=== PATIENT | male | born 1970 | race Caucasian/White ===

== ENCOUNTER 2024-05-09 01:37 | Emergency (ER) | payer BC, SELFPAY ==
[2024-05-09 01:39] VITALS: BP 142/77; PULSE 56; RESP 16; TEMP 36.6; O2SAT 100
--- OUTSIDE RECORDS SUMMARY | 2024-05-09 01:40 | XMS_ITS | Clinical Summary ---
Author Organization [facility] [address] [place] Address [address] [place] [id number] Care Team Providers Care Lead Cashier Name Role Phone Unknown, Notinfile Primary Care Provider Unavail able Allergies No known active allergies Medications No known medications Active Problems No known active problems Social History Tobacco Use Types Packs/Day Years Used Date Smoking Tobacco: Never Smokeless Tobacco: Current Chew Tobacco Cessation:Ready to Q uit: Not Asked; Counseling Given: Not Answered Personal Safety Answer Date Recorded Getting School Help Needed Not on file 06/23 Sex and Gender Information Value Date Recorded Sex Assigned at Not on file Legal Sex Male 2:13 PM CDT Gender Identity Not on file Sexual Orientation Not on file Obstetrics History Last Filed Vital Signs Vital Sign Reading Time Taken Comments Blood Pressure 131/91 12/07/2021 2:27 PM CDT Pulse 77 12/07/2021 2:27 PM CDT Temperature 37.1 ??C (98.8 ??F) 12/07/2021 2:27 PM CD T Respiratory Rate 16 12/07/2021 2:27 PM CDT Oxygen Saturation 96% 12/07/2021 2:27 PM CDT Inhaled Oxygen Concentration - - Weight 104.3 kg (230 lb) 12/07/2021 2:27 PM CDT Height 189.4 cm (6' 2.57 ) 12/07/2021 2:27 PM CD T Body Mass Index 29.08 12/07/2021 2:27 PM CDT Plan of Treatment Health Maintenance Due Date Last Done Comments Colon Cancer Screening-Colonoscopy 1971 Depression Screening 1971 Hepatitis C Screening 1971 Prostate Cancer Screening-PSA 1971 Hepatitis B Screening 11/15/1989 Regular Well Visit/Exam 18-64 11/15/1989 Zoster Vaccine (1 of 2) 11/15/2021 Influenza Vaccine (#1) 2023 DTaP/Tdap/Td Vaccine (2 - Td or Tdap) 11/21/2024 11/21/2014 Pneumococcal vaccine <65 Aged Out No longer eligible based on patient's age to complete this topic Insurance [facility] Care Teams Lead Cashier Relationship Specialty Start Date End Date Unknown, Notinfile PCP - General 12/07/21
--- OUTSIDE RECORDS SUMMARY | 2024-05-09 01:40 | XMS_ITS | Clinical Summary ---
Author Organization [facility] Address [facility] [place] [address] [place] [address] Care Team Providers Care Structural Engineering Technician Name Role Phone None, Provider MD Primary Care Provider Unavaila ble Allergies No known active allergies Medications cyclobenzaprine 10 MG tablet Take 1 tablet (10 mg total) by mouth 3 (three) times daily as needed for Muscle Spasms (pain). 15 tablet 11/10/2018 Active Social History Tobacco Use Types Packs/Day Years Used Date Smoking Tobacco: Never Smokeless Tobacco: Current Sex and Gender Information Value Date Recorded Sex Assigned at Not on file Legal Sex Male 6:00 PM CDT Gender Identity Not on file Sexual Orientation Not on file Last Filed Vital Signs Vital Sign Reading Time Taken Comments Blood Pressure 138/78 11/10/2018 5:08 PM CDT Pulse 69 11/10/2018 5:08 PM CDT Temperature 37.1 ??C (98.8 ??F) 11/10/2018 2:50 PM CD T Respiratory Rate 18 11/10/2018 5:08 PM CDT Oxygen Saturation 95% 11/10/2018 5:08 PM CDT Inhaled Oxygen Concentration - - Weight 102.1 kg (225 lb) 11/10/2018 2:59 PM CDT Height 188 cm (6' 2 ) 11/10/2018 2:59 PM CDT Body Mass Index 28.89 11/10/2018 2:59 PM CDT Plan of Treatment Health Maintenance Due Date Last Done Comments Colorectal Cancer Screening Colonoscopy (10 Years) 1971 Annual Physical 11/15/1974 Hepatitis C 11/15/1989 DTaP, Tdap and Td Vaccines ( 1 - Tdap) 11/15/1990 Hepatitis B Vaccines (1 of 3 - 19+ 3-dose series) 11/15/1990 Zoster Vaccines (1 of 2) 11/15/2021 COVID-19 Vaccine (2023-2 5 season) 2023 Influenza Adult (#1) 2024 Meningococcal B Vaccine Aged Out No l onger eligible based on patient's age to complete this topic Meningococcal Vaccine Aged Out No eun kavitha eligible based on patient's age to complete this topic Pneumococcal Vaccine: Pediat rics (0 to 5 Years) and At-Risk Patients (6 to 64 Years) Aged Out No longer eligible b ased on patient's age to complete this topic RSV Immunizations Under 20 Months Aged Out No longer eligible based on patient's age to complete this topic Insurance [facility] Advance Directives Documents on File Type Date Recorded Patient Analysis Director Expl anation Legal Documents 11/19/2020 2:57 PM HIPAA A uth for Jeramie Rehman's office Care Teams Structural Engineering Technician Relationship Specialty Start Date End Date None, Provider, PCP - General 11/10/18
--- OUTSIDE RECORDS SUMMARY | 2024-05-09 01:40 | XMS_ITS | Referral Summary ---
Author Organization [address] Address [address] [place] [phone] Care Team Providers Care Pocket Setter Name Role Phone Unknown, Notinfile Primary Care [...] 12/07/2021 2:27 PM CDT Plan of Treatment Not on file Insurance [place] [employer] [place] Care Teams Pocket Setter Relationship Specialty Start Date End Date Unknown, Notinfile PCP - General 12/07/21
[2024-05-09 01:58] LABS: Basophils Absolute Auto 0.1 K/mm3 (0.0-0.1); Basophils Percent Auto 0.9 % (0.2-1.2); Eosinophils Absolute Auto 0.2 K/mm3 (0-0.3); Eosinophils Percent Auto 1.9 % (0-4.4); Hematocrit 46.3 % (42.0-52.0); Hemoglobin 16.1 g/dL (14.0-18.0); Immature Granulocyte Absolute 0.04 K/mm3 (0.00-0.031); Immature Granulocyte Percent A 0.4 % (0-0.5); Lymphocytes Absolute Auto 3.21 K/mm3 (0.9-3.2); Lymphocytes Percent Auto 32.4 % (18.3-44.2); Mean Corpuscular HGB Conc 34.8 g/dl (32-36); Mean Corpuscular Hemoglobin 30.8 pg (26-34); Mean Corpuscular Volume 88.5 fl (80-100); Mean Platelet Volume 9.5 fl (7.4-10.4); Monocytes Absolute Auto 0.9 K/mm3 (0.1-0.6); Neutrophils Absolute Auto 5.5 K/mm3 (1.3-6.7); Neutrophils Percent Auto 55.4 % (45.5-73.1); Platelet Count Result 332 k/mm3 (150-375); Red Blood Count 5.23 M/mm3 (4.6-6.20); Red Cell Distribution Width 13.2 % (11.5-14.5); White Blood Count 9.9 K/mm3 (4.5-10.0)
[2024-05-09 02:09] LABS: Alanine Aminotransferase 22 U/L (6-50); Albumin Level 4.3 g/dL (3.5-5.1); Alkaline Phosphatase 77 U/L (38-126); Anion Gap 13 mmol/L (4-12); Aspartate Amino Transferase 23 U/L (17-59); Bilirubin,Total 0.6 mg/dL (0.2-1.3); Blood Urea Nitrogen 14 mg/dL (9-20); Calcium 9.3 mg/dL (8.4-10.2); Carbon Dioxide 23 mmol/L (22-30); Chloride 105 mmol/L (98-107); Estimated CRCL calculation 78 ml/min; Estimated Glomerular Filt Rate > 60; Glucose 145 mg/dL (65-110); Lipase 66 U/L (23-300); Potassium 3.5 mmol/L (3.4-5.0); Sodium 141 mmol/L (137-145)
[2024-05-09 02:34] LABS: Influenza A QL RT-PCR Negative (Negative); Influenza B QL RT-PCR Negative (Negative); RSV RNA, RT-PCR Negative (Negative); SARS-CoV-2 RNA PCR Negative (Negative)
[2024-05-09 03:30] LABS: Add Urine Microscopic? YES; Appearance Urine Clear (Clear); Bacteria Urine None Seen /hpf; Bilirubin Urine Negative (Negative); Blood Urine 2+ (Negative); Color Urine Yellow (Yellow); Glucose Urine UA Negative (Negative); Ketones Urine Negative (Negative); Leukocyte Esterase Ur Negative LEU/UL (Negative); Nitrate Urine Negative (Negative); Non Pathogenic Casts 0-2; Protein Urine Negative (Negative); Specific Grav Ur 1.014 (1.001-1.035); Squamous Epithelial Cell Urine None Seen /hpf (Few); Urobilinogen Urine 0.2 mg/dL (<2.0); WBC Urine 0-5 /hpf (0-3); pH Urine 5.5 (5.0-9.0)
--- NOTE | 2024-05-09 04:40 | ED_ITS ---
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 He felt like he needed to go to the bathroom. LBM 5:30pm. No blood, constipation, or diarrhae. Describes it as a pinching sensation. No urinary symptoms. No nausea but he did have an episode of emesis due to the pain after which he then felt better but then he had another episode of emesis and then felt better again. No prior abdominal surgeries. No penile discharge. Previously had a PCP but hasn't seen them in years and can't recall their name. No history of DM, hasn't seen a gastroenteroogist. No prior colonoscopy. States symptoms have resolved and not recurred while in the ED and he would like to be discharged, doesn't want any medication. Daughter tested positive for Flu A. Related Data Allergies Allergy/AdvReac Type Severity Reaction Status Date / Time No Known Allergies Allergy Verified 08/10/16 23:52 [facility] Family History Family History Daughter Influenza A Apr 2024 Exam 2 Narrative: GENERAL: Well-appearing, well-nourished, and in no acute distress. HEAD: Normocephalic, atraumatic. EYES: Non injected, non icteric ENT: Nares clear, no rhinorrhea or epistaxis. NECK: Supple. CHEST: Speaking in full sentences. No respiratory distress. HEART: Regular rate and rhythm. . ABDOMEN: Soft, nondistended. Non tender to palpation. No rigidity or guarding. Not peritoneal. No overlying ecchymosis or other erythema or other skin changes. Pelvis/: No right inguinal lymphadenopathy. No palpable hernia. EXTREMITIES: Normal range of motion. No lower extremity edema. SKIN: Warm, dry, no rash. NEURO: No focal deficits. Alert and oriented x3. PSYCH: Normal mood and affect. Course Vital Signs Vital signs: Vital Signs Temperature 97.8 F 05/09/24 01:39 Pulse Rate 56 L 05/09/24 01:39 Respiratory Rate 16 05/09/24 01:39 Blood Pressure 142/77 H 05/09/24 01:39 Pulse Oximetry 100 05/09/24 01:39 Temperature 97.8 F 05/09/24 01:39 Pulse Rate 63 05/09/24 05:01 Respiratory Rate 17 05/09/24 05:01 Blood Pressure 142/77 H 05/09/24 05:01 Pulse Oximetry 98 05/09/24 05:01 MDM - Abdominal Pain MDM Narrative Medical decision making narrative: Patient presents with RLQ/R pelvis/R inguinal pain. He also had 2 episodes of emesis but without nausea. In the ED he is afebrile with VS notable for bradycardia and hypertension. At the time of exam, patient states all symptoms have resolved and not recurred. He would like to be discharged. Doesn't want any medications. Abdominal exam benign. Reasonable to discharge but advised to follow up with PCP (also provided a name if can not re-establish with his prevoius PCP). Bradycardia resolved. Also advised that he can return at any time for new/worsening/unmanaged/recurring symptoms. Verifies understanding. Provided Rx for OTC analgesic medications. Differential Diagnosis Differential diagnosis: Likely abdominal pain, acute appendicitis, calculus of kidney, constipation, diverticulitis and other (hernia; considered testicular torsion; UTI) Lab Data Attestation: I reviewed the patient's lab results. Lab results narrative: Mild hyperglycemia. CBC unremarkable. 05/09/24 01:48 05/09/24 01:49 Labs: Lab Results 05/09/24 05/09/24 05/09/24 Range/Units 01:48 01:49 03:12 WBC 9.9 (4.5-10.0) K/mm3 RBC 5.23 (4.6-6.20) M/mm3 Hgb 16.1 (14.0-18.0) g/dL Hct 46.3 (42.0-52.0) % MCV 88.5 (80-100) fl MCH 30.8 (26-34) pg MCHC 34.8 (32-36) g/dl RDW 13.2 (11.5-14.5) % Plt Count 332 (150-375) k/mm3 MPV 9.5 (7.4-10.4) fl Immature Gran % (Auto) 0.4 (0-0.5) % Neut % (Auto) 55.4 (45.5-73.1) % Lymph % (Auto) 32.4 (18.3-44.2) % [place] % (Auto) 9.0 H (2.6-8.5) % Eos % (Auto) 1.9 (0-4.4) % Baso % (Auto) 0.9 (0.2-1.2) % Lymph # (Auto) 3.21 H (0.9-3.2) K/mm3 [place] # (Auto) 0.9 H (0.1-0.6) K/mm3 Eos # (Auto) 0.2 (0-0.3) K/mm3 Baso # (Auto) 0.1 (0.0-0.1) K/mm3 Abs Immat Gran (auto) 0.04 H (0.00-0.031) K/mm3 Absolute Neuts (auto) 5.5 (1.3-6.7) K/mm3 Absolute Nucleated RBC 0.000 (0.0-0.012) K/mm3 Nucleated RBC % 0.0 (0.0-0.2) % Sodium 141 (137-145) mmol/L Potassium 3.5 (3.4-5.0) mmol/L Chloride 105 (98-107) mmol/L Carbon Dioxide 23 (22-30) mmol/L Anion Gap 13 H (4-12) mmol/L BUN 14 (9-20) mg/dL Creatinine 1.14 (0.7-1.3) mg/dL Estim Creat Clear Calc 78 ml/min Estimated GFR > 60 (59 - ) Glucose 145 H (65-110) mg/dL Calcium 9.3 (8.4-10.2) mg/dL Total Bilirubin 0.6 (0.2-1.3) mg/dL AST 23 (17-59) U/L ALT 22 (6-50) U/L Alkaline Phosphatase 77 (38-126) U/L Total Protein 7.0 (6.3-8.2) g/dL Albumin 4.3 (3.5-5.1) g/dL Lipase 66 (23-300) U/L Urine Color Yellow (Yellow) Urine Appearance Clear (Clear) Urine pH 5.5 (5.0-9.0) Ur Specific [place] 1.014 (1.001-1.035) Urine Protein Negative (Negative) mg/dL Urine Glucose (UA) Negative (Negative) mg/dL Urine Ketones Negative (Negative) mg/dL Ur Blood (Man) 2+ H (Negative) Urine Nitrate Negative (Negative) Urine Bilirubin Negative (Negative) Urine Urobilinogen 0.2 (<2.0) mg/dL Leukocyte Esterase Rfl Negative (Negative) R[place]ET[place]/UL Urine RBC 11-20 H (0-2) /hpf Urine WBC 0-5 (0-3) /hpf Ur Squamous Epith Cells None seen (Few) /hpf Urine Bacteria None seen /hpf Urine Casts 0-2 Influenza A (RT-PCR) Negative (Negative) Influenza B (RT-PCR) Negative (Negative) RSV (RT-PCR) Negative (Negative) SARS-CoV-2 RNA (RT-PCR) Negative (Negative) Discharge Plan Discharge Clinical Impression: Abdominal pain, RLQ, Right inguinal pain Patient Disposition: Home, Self-Care Condition: Stable Instructions: Antibiotic Form, Abdominal Pain (ED), Groin Pain (ED) Additional Instructions: Your workup did not identify a clear cause of your symptoms and they had improved/resolved while in the ED. Follow up with your primary care physician. If you are having difficulty reestablishing with your previous primary care physician, the name of the doctors listed below. Do not hesitate to return to the emergency department with any new or worsening or unmanaged/recurring symptoms. Acetaminophen/Tylenol (maximum 4000 mg per day) is safe to take with NSAIDs (ibuprofen/Motrin) for pain relief. Patient Language: Mosotho Prescriptions: New acetaminophen 500 mg capsule 1,000 mg PO Q6H PRN (Reason: pain) Qty: 30 0RF ibuprofen 600 mg tablet 600 mg PO TID PRN (Reason: pain) Qty: 30 0RF Follow-up/Referrals: PHYSICIAN,CLAMSHELL OPERATOR [Primary Care Provider] - Rafael Kruger MD [Physician] - (internal medicine/family practice) Stand Alone Forms: Work/School Release IP Time of Disposition: 04:51
[2024-05-09 04:42] VITALS: BP 142/77; PULSE 63; RESP 17; O2SAT 98
--- OUTSIDE RECORDS SUMMARY | 2024-05-09 04:57 | XMS_ITS | Clinical Summary ---
Author Organization [facility] Address [facility] [facility] [address] [place] [address] Care Team Providers Care Vice President [employer] Ins[employer] Name Role Phone None, Provider MD Primary [...] this topic Insurance [facility] Advance Directives Documents on File Type Date Recorded Patient Cable Driller Expl anation Legal Documents 11/19/2020 2:57 PM HIPAA A uth for Jeramie Rehman's office Care Teams Vice President [employer] Relationship Specialty Start Date End Date None, Provider, PCP - General 11/10/18
--- OUTSIDE RECORDS SUMMARY | 2024-05-09 04:57 | XMS_ITS | Clinical Summary ---
Author Organization [facility] [address] [place] Address [address] [place] [phone] Care Team Providers Care Machine Overhauler Name Role Phone Unknown, Notinfile Primary Care [...] patient's age to complete this topic Insurance [facility] Care Teams Machine Overhauler Relationship Specialty Start Date End Date Unknown, Notinfile PCP - General 12/07/21
--- OUTSIDE RECORDS SUMMARY | 2024-05-09 04:57 | XMS_ITS | Referral Summary ---
Author Organization [address] Address [address] [place] [phone] Care Team Providers Care Inside Sales Assistant Name Role Phone Unknown, Notinfile Primary Care [...] Plan of Treatment Not on file Insurance [facility] [place] Care Teams Inside Sales Assistant Relationship Specialty Start Date End Date Unknown, Notinfile PCP - General 12/07/21
[2024-05-09 05:01] VITALS: BP 142/77; PULSE 63; RESP 17; O2SAT 98
== END 2024-05-09 05:03 | disposition home or self-care (01) ==
LOC: ANHED 04:55
PROVIDERS: Physician Assistant; Emergency Provider Student in an Organized Health Care Education/Training Program
DX: R10.31 Right lower quadrant pain (principal); Z20.822 Contact with and (suspected) exposure to COVID-19
CPT/HCPCS: 36415; 80053; 81001; 83690; 85025; 87637; 99283